=== PATIENT | female | born 1950 | race Caucasian/White ===

== ENCOUNTER → 2019-01-12 10:45 | Outpatient (CLI) | payer MEDICARE, OTHER, SELFPAY ==
[2019-01-12 12:21] LABS: INR 1.4 (0.9-1.3); Prothrombin Time 16.1 SECONDS (10.1-12.7)
== END ==
PROVIDERS: Visit Provider Internal Medicine Clinical Cardiac Electrophysiology
DX: Z79.01 Long term (current) use of anticoagulants (principal)
CPT/HCPCS: 36415; 85610

== ENCOUNTER → 2019-01-26 10:36 | Outpatient (CLI) | payer MEDICARE, OTHER, SELFPAY ==
[2019-01-26 12:17] LABS: INR 2.5 (0.9-1.3)
== END ==
PROVIDERS: Visit Provider Internal Medicine Clinical Cardiac Electrophysiology
DX: Z79.01 Long term (current) use of anticoagulants (principal)
CPT/HCPCS: 36415; 85610

== ENCOUNTER → 2019-02-23 09:58 | Outpatient (CLI) | payer MEDICARE, OTHER, SELFPAY ==
[2019-02-23 10:28] LABS: INR 3.5 (0.9-1.3); Prothrombin Time 41.3 SECONDS (10.1-12.7)
== END ==
PROVIDERS: Visit Provider Internal Medicine Clinical Cardiac Electrophysiology
DX: Z79.01 Long term (current) use of anticoagulants (principal)
CPT/HCPCS: 36415; 85610

== ENCOUNTER → 2019-03-16 09:14 | Outpatient (CLI) | payer MEDICARE, OTHER, SELFPAY ==
[2019-03-16 10:27] LABS: INR 3.1 (0.9-1.3)
== END ==
PROVIDERS: Referring Provider Internal Medicine Clinical Cardiac Electrophysiology; Visit Provider Internal Medicine Clinical Cardiac Electrophysiology
DX: Z92.29 Personal history of other drug therapy (principal); Z79.01 Long term (current) use of anticoagulants
CPT/HCPCS: 36415; 85610

== ENCOUNTER → 2019-04-06 09:06 | Outpatient (CLI) | payer MEDICARE, OTHER, SELFPAY ==
[2019-04-06 10:28] LABS: INR 2.3 (0.9-1.3); Prothrombin Time 25.9 SECONDS (10.1-12.7)
== END ==
PROVIDERS: Referring Provider Internal Medicine Clinical Cardiac Electrophysiology; Visit Provider Internal Medicine Clinical Cardiac Electrophysiology
DX: Z79.01 Long term (current) use of anticoagulants (principal)
CPT/HCPCS: 36415; 85610

== ENCOUNTER → 2019-05-04 09:46 | Outpatient (CLI) | payer MEDICARE, OTHER, SELFPAY ==
[2019-05-04 10:29] LABS: INR 2.3 (0.9-1.3)
== END ==
PROVIDERS: Referring Provider Internal Medicine Clinical Cardiac Electrophysiology; Visit Provider Internal Medicine Clinical Cardiac Electrophysiology
DX: Z79.01 Long term (current) use of anticoagulants (principal)
CPT/HCPCS: 36415; 85610

== ENCOUNTER → 2019-06-01 08:52 | Outpatient (CLI) | payer MEDICARE, OTHER, SELFPAY ==
[2019-06-01 11:03] LABS: INR 2.3 (0.9-1.3); Prothrombin Time 26.1 SECONDS (10.1-12.7)
== END ==
PROVIDERS: Referring Provider Internal Medicine Clinical Cardiac Electrophysiology; Visit Provider Internal Medicine Clinical Cardiac Electrophysiology
DX: Z79.01 Long term (current) use of anticoagulants (principal)
CPT/HCPCS: 36415; 85610